=== PATIENT | male | born 1985 | race Caucasian/White ===

== ENCOUNTER 2016-08-03 22:12 | Emergency (ER) | payer OTHER ==
[~2016-08-03] VITALS: Ht 175.3 cm; Wt 70.2 kg
[~2016-08-03 22:12] MED LIST: KEFLEX500 MG PO; NAPROXEN500 MG PO; NOHOMEMEDS; PERCOCET 5/31 TABLET PO; SEROQUEL50 MG PO; SERTRALINE HCL50 MG PO
[2016-08-03 22:20] VITALS: BP 99/54
== END 2016-08-03 23:30 | disposition left against medical advice (07) ==
LOC: EME 22:12
DX: R06.02 Shortness of breath (principal); Z53.21 Procedure and treatment not carried out due to patient leaving prior to being seen by health care provider
CPT/HCPCS: 93005

== ENCOUNTER 2017-10-01 19:25 | Emergency (ER) | payer OTHER ==
[~2017-10-01] VITALS: Ht 175.3 cm; Wt 69.2 kg
[2017-10-01 20:21] LABS: HEMATOCRIT 47.4 % (38.0-50.0); HEMOGLOBIN 15.8 G/DL (12.5-16.6); MCH 29.2 PG (29.0-34.0); MCHC 33.3 G/DL (30.0-36.0); MCV 87.6 FL (86-99); PLATELET COUNT 221 K/uL (156-360); RBC DIS.WIDTH-CV 13.3 % (11.8-14.6); RBC DIS.WIDTH-SD 42.8 % (39-53); RED BLOOD COUNT 5.41 M/uL (4.00-5.50); WHITE BLOOD COUNT 6.6 K/uL (4.1-10.2)
[2017-10-01 20:32] LABS: CHLORIDE 109 mEq/L (99-109); POTASSIUM 4.1 mEq/L (3.7-5.4); SODIUM 140 mEq/L (136-147)
[2017-10-01 20:34] LABS: GLUCOSE 76 mg/dL (70-99)
[2017-10-01 20:38] LABS: CREATININE 0.8 mg/dL (0.6-1.3); GFR ESTIMATE (CALCULATED) > 59 mL/min/ (58.99-99999)
[2017-10-01 20:39] LABS: UREA NITROGEN (BUN) 9 mg/dL (9-23)
[2017-10-01] MEDS ORDERED: MOTRIN800 MG PO (21:06)
[2017-10-01] MEDS ORDERED: FIORICET 50-301 EAC1 PO (21:06)
[2017-10-01] MEDS ORDERED: VALIUM2 MG PO (21:06)
[2017-10-01 21:25] VITALS: BP 133/88
== END 2017-10-01 21:26 | disposition home or self-care (01) ==
LOC: EME 19:25
PROVIDERS: Nurse Practitioner Family
DX: S06.0X0A Concussion without loss of consciousness, initial encounter (principal); S16.1XXA Strain of muscle, fascia and tendon at neck level, initial encounter; S01.81XA Laceration without foreign body of other part of head, initial encounter; S00.12XA Contusion of left eyelid and periocular area, initial encounter; Y00.XXXA Assault by blunt object, initial encounter; B19.20 Unspecified viral hepatitis C without hepatic coma; Z88.5 Allergy status to narcotic agent; F17.200 Nicotine dependence, unspecified, uncomplicated
CPT/HCPCS: 70450; 70486; 80048; 85027; 99281; 99285